=== PATIENT | female | born 1980 | race Caucasian/White ===

== ENCOUNTER 2019-06-03 08:50 | Day surgery (SDC) | payer BC ==
[~2019-06-03 08:50] MED LIST: Buffered Lidocaine 1% SYRIN* 1 ML/SYRINGE INTRADERM ONE; Famotidine IV* 10 MG/ML 2 ML (20 mg) IV ONE; Lactated Ringers 1000 ML Bag* 1,000 ML IV SCH; Metoclopramide IV* 5 MG/ML 2 ML VIAL IV SLOW PU ONE
[2019-06-03] MEDS ORDERED: Famotidine IV* 10 MG/ML 2 ML (20 mg) ONE (08:59)
[2019-06-03] MEDS ORDERED: Metoclopramide IV* 5 MG/ML 2 ML VIAL ONE (08:59)
[2019-06-03] MEDS ORDERED: Propofol* 10 MG/ML 20 ML BTL ONE (09:26)
[2019-06-03] MEDS ORDERED: Lidocaine 2% PF * 5 ML VIAL ONE (09:26)
[2019-06-03] MEDS ORDERED: fentaNYL* 50 MCG/ML 2 ML VIAL (100 MCG VIAL) ONE ×2 (09:26→11:07)
[2019-06-03] MEDS ORDERED: Lidocaine 1% MPF* 2 ML VIAL ONE (10:21)
[2019-06-03] MEDS ORDERED: Betamethasone INJ* 6 MG/ML 5 ML VIAL (30 MG) ONE (10:22)
[2019-06-03] MEDS ORDERED: Bupivacaine 0.25% SDV* 30 ML ONE (10:23)
[2019-06-03] MEDS ORDERED: Midazolam* 1 MG/ML 2 ML VIAL (2 MG) ONE (11:07)
[2019-06-03 12:17] VITALS: BP 120/73
[2019-06-03] MEDS ORDERED: Naloxone* 0.4 MG/ML 1 ML VIAL IV PRN (12:17)
--- NOTE | 2019-06-03 17:27 | OP ---
DATE OF OPERATION: 06/03/19 - [facility] DATE OF : 80 SURGEON: Mk Flores MD BEET END SUPERVISOR: JENNY Smith ANESTHESIOLOGIST: Dr. Aguilar. ANESTHESIA: Local MAC. PRE-OP DIAGNOSES: 1. Right de Quervain disease. 2. Right thumb carpometacarpal joint arthritis. POST-OP DIAGNOSES: 1. Right de Quervain disease. 2. Right thumb carpometacarpal joint arthritis. OPERATIVE PROCEDURE: 1. Right de Quervain release with tenosynovectomy. 2. Right thumb carpometacarpal joint steroid injection. INDICATIONS: Ms. Dumont has the aforementioned conditions. We talked about her treatment options. She wanted to proceed with surgery. She understands the risks and benefits including risk of radial sensory nerve irritation. ESTIMATED BLOOD LOSS: 2 mL. COMPLICATIONS: None. FINDINGS: See above and below. DESCRIPTION OF PROCEDURE: Nathalia was seen in the preoperative holding area. The correct side, site, and procedure were identified. We came back to the operating room. The arm was prepped and draped in the usual fashion, and a time -out was performed. The arm was exsanguinated with the Esmarch and the tourniquet was inflated to 250 mmHg. Prior to draping, at the same time I numbed up the operative site with 0.25% plain Marcaine, just prior to that, I injected the right thumb carpometacarpal joint using 25-gauge needle with 2 mL of 1% plain lidocaine and 12 mg of betamethasone. After the drapes were up and the arm was exsanguinated and the tourniquet inflated, I made a 2 cm transverse incision just proximal to the radial styloid. Dissection was carried down and full-thickness flaps were raised off the flexor tendon sheath. The Ragnell retractors were placed. The nerve was protected. I released the first dorsal compartment tendon sheath on the dorsal margin. There was a lot of tenosynovitis around the tendon that was all excised. The release was completed distally and proximally. At this point, everything was looking good. The tendons were totally freed up. There was no accessory compartment. I irrigated out the wound. Skin was closed with 4-0 Monocryl and Steri-Strip. Soft dressings were applied, and she was taken to the recovery room in stable condition. [id number] #: [id number] MTDD
== END 2019-06-03 12:41 | disposition home or self-care (01) ==
LOC: OREAST 08:50
PROVIDERS: ATTEND Orthopaedic Surgery Hand Surgery
DX: M65.4 Radial styloid tenosynovitis [de Quervain] (principal); M18.11 Unilateral primary osteoarthritis of first carpometacarpal joint, right hand; Z72.0 Tobacco use; E03.9 Hypothyroidism, unspecified; E11.9 Type 2 diabetes mellitus without complications; Z79.84 Long term (current) use of oral hypoglycemic drugs
CPT/HCPCS: 81025; J0702; J2250; J2704; J2765; J3010; J3490